=== PATIENT | male | born 1975 | race African-American/Black ===

== ENCOUNTER → 2022-08-14 13:45 | Outpatient (BNVA) | payer MEDICAID, SELFPAY | PROVIDERS: Visit Provider Internal Medicine | DX: S14.115A Complete lesion at C5 level of cervical spinal cord, initial encounter (principal); G82.50 Quadriplegia, unspecified; K59.2 Neurogenic bowel, not elsewhere classified; N31.9 Neuromuscular dysfunction of bladder, unspecified | CPT/HCPCS: 99202 ==

== ENCOUNTER 2022-11-29 10:39 | Day surgery (SDC) | payer MEDICAID, SELFPAY ==
[2022-11-23 12:30] VITALS: BMI 30.2
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
[2022-11-29] VITALS (11 sets, daily range): BP systolic 103–207; BP diastolic 52–102; PULSE 48–60; RESP 16; TEMP 36.4–37.2; O2SAT 93–97
--- NOTE | ~2022-11-29 | FL_ITS ---
EXAMINATION: XR FLUOROSCOPY WITH IMAGES CLINICAL INFORMATION: Spine stimulator. Pain management procedure. COMPARISON: None. TECHNIQUE: Fluoroscopy Supervised By: Dr. Melchor Otoole. Fluoroscopy Time: 3.7 minutes. Cumulative Dose: 19.1 mGy. Images: 3. FINDINGS: There are 2 spinal stimulator electrodes seen ascending the posterior spinal canal. The electrode tips are at level of mid thoracic spine approximately T9. There is no visible kinking or defect of the leads. FL/FL guidance in OR IMPRESSION: Fluoroscopy for pain management procedure.
--- NOTE | 2022-11-29 10:59 | MHC.SHP ---
Pre-Procedural Eval Section A Date of Service: 11/29/22 The patient is an INPATIENT: No Changes since office visit: Yes Patient answered all questions The History & Physical has been completed within 30 days and I have reviewed it.: Yes Section B Chief Complaint: Complete lesion at C5 level Relevant Family History (Specify if Yes): No Relevant Social History: None Present Medications: see Short Stay Collaborative assessment Medical History: Significant History (C5 SCI) History of Previous Operations: No relevant previous surgery Allergies: Allergies Allergy/AdvReac Type Severity Reaction Status Date / Time No Known Allergies Allergy Verified 11/23/22 12:01 Review of Systems Sugical H&P ROS: Negative: Constitution, Cardiovascular, Respiratory and Musculoskeletal and Yes, Specify: Genitourinary (SP cath due for replacement) and Integumentary (Decub ulcers well healed) Exam Surgical H&P Exam: Normal: HEENT, Normal: Heart and Normal: Lungs Plan Diagnosis/Plan: Unchanged I have reviewed the history and physical and performed a pertinent physical examination on my patient. No changes have occurred unless specified. Proceed with trial of thoracic SCS for low back/leg pain. Will consider lumbar or cervical placement in case of nonreassuring paresthesia mapping. Time Spent With Patient Time: Total time managing care of this patient today ____ minutes.
--- NOTE | 2022-11-29 10:59 | PM.OP ---
Brief Operative Note Date of Service: 11/29/22 Pre-op diagnosis: Complete lesion at C5 level of cervical spinal cord, sequela Post-op diagnosis: same Procedure: Thoracolumbar spinal cord stimulator placement Implants: Nevro HFX temporary trial leads Surgeon: Melchor Otoole MD Anesthesia: MAC Was an Aircraft Structure Mechanic used for this Procedure?: No Estimated blood loss (mL): 2 Pathology: none sent Condition: stable Disposition: PACU
--- NOTE | 2022-11-29 10:59 | W.PM.OPN ---
Operative Note Operative Note Date of Service: 11/29/22 Narrative: Percutaneous Spinal Cord Stimulator Trial, Thoracolumbar After obtaining written consent, pre-procedure blood pressure and heart rate were recorded and are in the nursing record for review. A peripheral IV was started. Antibiotics, cefazolin 2 gram, were given intraoperatively. The patient was placed in a prone position. The patient was sedated by the anesthesiologist. The thoracolumbar area was widely prepped with ChloraPrep, allowed to dry and draped in sterile fashion. Fluoroscopy was used to identify the target interlaminar spaces and appropriate needle insertion sites. The skin and subcutaneous tissue was anesthetized with 0.5% lidocaine and ropivacaine 0.25%. Two separate 14 gauge Tuohy epidural needles were then advanced from this point in a paramedian approach to the epidural space opening at L1/L2 interspace, where loss of resistance was found using air. No paresthesias were elicited with needle placement. No CSF or heme was present upon needle placement. A guide wire was then used to confirm placement into the epidural space at each level under live fluoroscopy. The 1x8 stimulator lead wire was then threaded to the top of T9 in the right parasagittal position and bottom of T9 in the left parasagittal position under live fluoroscopy. The leads advanced midline.?The Tuohy needles were then completely removed under live fluoroscopy. The stimulator wires were then secured with 2-0 silk sutures to the skin, and covered with steristrips, gauze and tegaderm for skin dressing. The patient tolerated the procedure well and no complications were encountered. The patient was then brought to the PACU in stable condition. Post-Op course: Following the procedure the patient's vital signs were stable. After 45 mins in the PACU, he had 1 episode of autonomic dysreflexia with increase in blood pressure to 190s/100 associated with a headache. This episode resolved on its own. He complained of some bladder and abdominal spasms that were more frequent than his usual. He had not taken his afternoon doses of muscle relaxants so baclofen 20 mg and tizanidine 4 mg was given. A urine culture was also sent since he was overdue for his suprapubic catheter replacement with plan to get that changed on Sunday. Brief prescriptions of nifedipine and clonidine were ordered. I discussed watching his blood pressure closely in case he experienced headaches during the course of the trial. I also went over the details of how to use nifedipine on a p.r.n. basis as well as clonidine as a backup if nifedipine was not sufficient in case of developing headaches secondary to hypertension. Patient expressed understanding. I also counseled him to try to get his suprapubic catheter replaced as soon as possible instead of waiting until Sunday. I also provided him with my contact information to reach out in case there was any problems. Time Out: Immediately prior to the procedure, the following was verbally confirmed that there is a signed consent form and that the correct patient, planned procedure, site and side are consistent with documentation and that necessary equipment and/or blood products are available prior to the start of the case. Complications: none EBL: <2 cc
[2022-11-29] MEDS: Lactated Ringers 1,000 ML 100 ML IVCONT (12:02)
[2022-11-29 12:26] LABS: MRSA Nasal PCR POSITIVE (Negative); SA Nasal PCR POSITIVE (Negative)
[2022-11-29] MEDS: Acetaminophen 325 MG TABLET 650 MG PO (15:02)
[2022-11-29] MEDS: Baclofen 20 MG TABLET PO (15:52)
[2022-11-29] MEDS: TiZANidine HCL 4 MG TABLET PO (15:53)
== END 2022-11-29 16:38 | disposition home or self-care (01) ==
PROVIDERS: Visit Provider Internal Medicine
PROC: (CPT 63650; principal; 2022-11-29 12:00)
DX: S14.115A Complete lesion at C5 level of cervical spinal cord, initial encounter (principal); G82.54 Quadriplegia, C5-C7 incomplete; M79.2 Neuralgia and neuritis, unspecified; R20.2 Paresthesia of skin; K59.2 Neurogenic bowel, not elsewhere classified; N31.9 Neuromuscular dysfunction of bladder, unspecified; L89.159 Pressure ulcer of sacral region, unspecified stage; R25.2 Cramp and spasm; V49.9XXA Car occupant (driver) (passenger) injured in unspecified traffic accident, initial encounter; Y93.89 Activity, other specified; Y92.9 Unspecified place or not applicable; Y99.8 Other external cause status; Z93.3 Colostomy status; Z99.3 Dependence on wheelchair; Z79.82 Long term (current) use of aspirin; Z79.899 Other long term (current) drug therapy; Z87.828 Personal history of other (healed) physical injury and trauma; Z98.890 Other specified postprocedural states
CPT/HCPCS: 63650 ×2; 87086; 87640; 87641; C1897; J0690; J2250; J2795; J3010

== ENCOUNTER → 2022-12-05 11:07 | Outpatient (BNVA) | payer MEDICAID, SELFPAY | PROVIDERS: Visit Provider Nurse Practitioner Family | DX: S14.11 Complete lesion of cervical spinal cord (principal); G89.4 Chronic pain syndrome | CPT/HCPCS: 99212 ==

== ENCOUNTER → 2023-09-06 10:27 | Outpatient (BNVA) | payer MEDICAID, SELFPAY | PROVIDERS: Visit Provider Nurse Practitioner Family | DX: Z45.42 Encounter for adjustment and management of neurostimulator (principal) | CPT/HCPCS: 99211 ==